=== PATIENT | female | born 1980 | race Caucasian/White ===

== ENCOUNTER 2021-04-02 21:17 | Emergency (ER) | payer MEDICAID, SELFPAY ==
[2021-04-02 21:18] VITALS: BP 161/101; PULSE 112; RESP 16; TEMP 36.5; O2SAT 99; BMI 24.7
[2021-04-02] MEDS: 0.9% Normal Saline 1,000 ML 1000 ML IV ×2 (22:22→23:24)
--- NOTE | 2021-04-02 22:25 | RAD_ITS ---
INDICATION: Bibasilar rales, Covid positive EXAMINATION/TECHNIQUE: X-RAY - XR Chest 1 View COMPARISON: None. FINDINGS: The lungs are clear. The cardiomediastinal silhouette is unremarkable. No pleural effusion or pneumothorax. No acute osseous abnormalities. RAD/Chest 1 View (Portable) IMPRESSION: No acute radiographic abnormalities. Electronically Signed: Lincoln Hernández MD at 23:08 EDT Tel , Service support ,
[2021-04-02 22:31] LABS: Absolute Neutrophil Count 2.5 X10^3/uL (2.0-7.7); Basophil# 0.01 X10^3/uL; Basophil% 0.2 % (0-1); Eosinophil# 0.07 X10^3/uL; Eosinophils% 1.5 % (0-5); Hematocrit 40.8 % (37-47); Hemoglobin 13.2 g/dL (12.0-15.0); Lymphocyte % 35.7 % (19-41); Mean Corp Hgb Conc 32.4 g/dL (32-36); Mean Corpuscular Hgb 29.7 pg (27.0-32.0); Mean Corpuscular Volume 91.9 fL (81-99); Mean Platelet Vol. 10.6 fl (6.2-12.0); Monocyte# 0.43 X10^3/uL; NRBC Flagged by Analyzer 0 % (0-5); Neutrophil # 2.54 X10^3/uL (2.7-7.7); Neutrophil % 53.4 % (47-70); Platelet Count 166 K/mm3 (150-450); RBC Distribution Width CV 13.3 % (11.6-14.6); RBC Distribution Width SD 45.6 fl (35.1-43.9); Red Blood Count 4.44 M/mm3 (4.2-5.4); White Blood Count 4.8 K/mm3 (4.4-11.0)
[2021-04-02 22:46] LABS: Anion Gap 3 (5-15); BUN 11 mg/dL (7-18); BUN/Creat Ratio 17.2 RATIO (10-20); Calcium,Total 8.5 mg/dL (8.5-10.1); Chloride 108 mmol/L (98-107); Creatinine, Serum 0.64 mg/dL (0.55-1.02); EST Glomerular Filtration Rate 108 mL/min (>60); Est Glom Filt Rate - Afr Amer 131 mL/min (>60); Estimated Creatinine Clearance 94.72 ml/min; Glucose 97 mg/dL (74-106); Potassium 3.8 mmol/L (3.5-5.1); Sodium Level 141 mmol/L (136-145)
--- NOTE | 2021-04-02 22:58 | EDS_ITS ---
HPI History of Present Illness Chief Complaint: General Illness Detail of Chief Complaint: COVID-19 positive and urinary symptoms Informant: patient Onset/Context/Timing Onset: Yesterday (Onset of urinary symptoms) and Weeks (Covid symptoms have been present for approximately 2 weeks.) Context: Sudden Onset Timing: Continuous Quality: Upper respiratory and Location: Upper respiratory and Current Severity: Moderate Maximum Severity: Moderate Worsened by: Dyspnea on exertion otherwise not applicable Relieved by: Nothing Associated Symptoms Associated Symptoms: Read HPI Narrative Narrative: Patient is a 41-year-old woman who is COVID-19 positive who presents with respiratory symptoms. What concerns her is increased fatigue and generalized weakness due to urinary tract infection. She complains of right flank pain and dysuria. She is sexually active. She is . She does not use any form of control. She denies vaginal bleeding or vaginal discharge. She denies subjective fever or chills. She does complain of mild headache. She denies photophobia or neck pain. She denies dyspnea or dyspnea on exertion. She reports nausea without vomiting or diarrhea. Prior similar symptoms: Yes Recent Illness/Hospitalization: Yes [facility] Medical History Asthmatic bronchitis Home Medications ciprofloxacin HCl 500 mg PO BID #14 tablet 04/03/21 [Rx Last Taken Unknown] Allergy/AdvReac Type Severity Reaction Status Date / Time No Known Allergies Allergy Verified 04/02/21 21:22 Social History (Updated 04/02/21 @ 23:[address] Juan Diego Moore MD) household members: spouse and family Smoking Status: Current every day smoker tobacco type: cigarettes alcohol intake: current alcohol intake frequency: other substance use type: does not use ROS ROS ED Constitutional Constitutional ED: Reports fever(s) and subjective; Denies chills or sweats Eyes Eyes: Denies blurry vision, change in vision or diplopia ENT ENT ED: Reports rhinorrhea and sore throat; Denies ear pain Cardiovascular Cardiovascular: Denies chest pain, orthopnea or palpitations Respiratory/Chest Respiratory/Chest: Reports cough; Denies dyspnea, dyspnea on exertion, orthopnea or sputum Gastrointestinal Gastrointestinal: Reports abdominal pain and nausea; Denies diarrhea or vomiting Genitourinary Genitourinary ED: Reports dysuria; Denies hematuria or urinary frequency Musculoskeletal Musculoskeletal: Denies arthralgias, myalgias or neck pain Integumentary Denies Abrasions or rash Neurologic Neurologic: Reports headache(s) and weakness; Denies paresthesias Endocrine Endocrinology: Denies polydipsia, polyphagia or polyuria EXAM Physical Exam Const Vital Signs: 04/02/21 21:18 04/02/21 22:21 04/02/21 23:18 Temperature 97.7 F L Temperature Source Temporal Pulse Rate 112 H 84 Respiratory Rate 16 18 Respiratory Effort Normal Non-Labored Blood Pressure 161/101 H 140/81 H Blood Pressure Mean 121 100 Pulse Ox 99 100 Oxygen Delivery Method Room Air Room Air Positive well nourished and well developed General Appearance ED: well developed and other Patient does not appear well. She does not appear toxic. HEENT HEENT Narrative: Head is atraumatic normocephalic. Ears are normal. Nares patent. Posterior pharynx unremarkable. Eyes PERRL and EOMs intact bilaterally General Eye ED: Negative for pale conjunctiva or scleral icterus Neck no lymphadenopathy, supple and no JVD Chest Wall inspection of chest normal and palpation of chest normal Resp normal respiratory effort and clear to auscultation bilaterally Effort and Inspection: Negative for pain with movement Cardio regular rhythm, S1 normal heart sound, S2 normal heart sound and no murmurs Rate: tachycardic GI normal to inspection, nondistended, normoactive bowel sounds, non-tender and non-distended Palpation: soft Back/Spine General Back: CVA tenderness right Cervical Spine: Negative for cervical spine tenderness Thoracic Spine / Upper Back: Negative for thoracic spinal tenderness or para spinal muscle tenderness Extremity normal to inspection General Extremety ED: Negative for edema or tenderness General Extremity: Negative for edema Neuro oriented x3, CN's II-XII intact bilaterally and no sensory deficits noted Sensorium / Orientation: alert Motor Exam: strength 5/5 throughout Psych mental status grossly normal Skin no rashes or lesions noted, no wounds and skin turgor normal MDM MDM MDM Narrative Medical decision making narrative: Constellation of symptoms may be due to Covid. With her having urinary symptoms will obtain UA to evaluate for urinary tract infection. Since she is tachycardic IV fluids were ordered. Lab Data Attestation: I reviewed the patient's lab results. Labs: Laboratory Results - last 24 hr 08/26/21 08/26/21 08/26/21 22:18 22:18 22:18 WBC 4.8 RBC 4.44 Hgb 13.2 Hct 40.8 MCV 91.9 MCH 29.7 MCHC 32.4 RDW Std Deviation 45.6 H RDW Coeff of Candy 13.3 Plt Count 166 MPV 10.6 Immature Gran % (Auto) 0.200 Neut % (Auto) 53.4 Lymph % (Auto) 35.7 [place] % (Auto) 9.0 Eos % (Auto) 1.5 Baso % (Auto) 0.2 Absolute Neuts (auto) 2.5 Absolute Lymphs (auto) 1.70 Nucleated RBC % 0 Sodium 141 Potassium 3.8 Chloride 108 H Carbon Dioxide 30.0 Anion Gap 3 L BUN 11 Creatinine 0.64 Estim Creat Clear Calc 94.72 Est GFR (MDRD) Af Amer 131 Est GFR (MDRD) Non-Af 108 BUN/Creatinine Ratio 17.2 Glucose 97 Lactic Acid 1.6 Calcium 8.5 Urine Color Urine Clarity Urine pH Ur Specific [place] Urine Protein Urine Glucose (UA) Urine Ketones Urine Occult Blood Urine Nitrite Urine Bilirubin Urine Urobilinogen Ur Leukocyte Esterase Urine RBC Urine WBC Ur Squamous Epith Cells Urine Bacteria Urine Mucus 04/02/21 23:19 WBC RBC Hgb Hct MCV MCH MCHC RDW Std Deviation RDW Coeff of Candy Plt Count MPV Immature Gran % (Auto) Neut % (Auto) Lymph % (Auto) [place] % (Auto) Eos % (Auto) Baso % (Auto) Absolute Neuts (auto) Absolute Lymphs (auto) Nucleated RBC % Sodium Potassium Chloride Carbon Dioxide Anion Gap BUN Creatinine Estim Creat Clear Calc Est GFR (MDRD) Af Amer Est GFR (MDRD) Non-Af BUN/Creatinine Ratio Glucose Lactic Acid Calcium Urine Color Yellow Urine Clarity Cloudy Urine pH 7.0 Ur Specific [place] 1.010 Urine Protein 30 H Urine Glucose (UA) Normal Urine Ketones Negative Urine Occult Blood 25 H Urine Nitrite Positive H Urine Bilirubin Negative Urine Urobilinogen Normal Ur Leukocyte Esterase 500 H Urine RBC 0-5 SEEN Urine WBC >100 SEEN Ur Squamous Epith Cells 0 SEEN Urine Bacteria 2+ Urine Mucus 0 SEEN Patient's urine is consistent with urinary tract infection. She was ordered 1 g of Rocephin. Culture was sent. She requested her prescription be filled here. Since she has CVA tenderness will treat for pyelonephritis. Radiography Chest X-Ray - ED: 1 View, Read by ED Physician, Unchanged, Heart, Lungs, Mediastinum, Bony Structures and Chronic Changes Diagnostic Testing: Radiology Impression Chest X-Ray 04/02/21 22:25 IMPRESSION: No acute radiographic abnormalities. Electronically Signed: Lincoln Hernández MD at 23:08 EDT Tel , Service support , Discharge Plan Triage Chief Complaint: General Illness ED Provider: Juan Diego Moore Dx/Rx/DC Orders Clinical Impression: Pyelonephritis of right kidney, COVID-19 virus infection Instructions: Coronavirus Disease 2019 (COVID-19): Caring for Yourself or Others, Kidney Infec Dc Prescriptions: New ciprofloxacin HCl [ciprofloxacin HCl] 500 MG tablet 500 mg PO BID Qty: 14 RF: 0 Primary Care Provider: Care Physician,No Primary Referrals: Paty Null MD [STAFF PHYSICIAN] - 3-5 Days Care Physician,No Primary [Primary Care Provider] - Disposition Disposition: Home, Self Care
[2021-04-02 23:13] LABS: Lactic Acid 1.6 mmol/L (0.4-1.9)
[2021-04-02 23:18] VITALS: BP 140/81; PULSE 84; RESP 18; O2SAT 100
[2021-04-02 23:32] LABS: Color, Urine Yellow (Yellow); Glucose, Dipstick Normal (Normal); Ketone-Dipstick Negative (Negative); Leukocyte Esterase-Dipstick 500 /ul (Negative); Mucous, Urine 0 SEEN /hpf (<or=2+); Nitrite-Dipstick Positive (Negative); Occult Blood-Urine 25 /ul (Negative); Protein-Dipstick 30 mg/dl (Negative); Squamous Epithelial Cells - UA 0 SEEN /hpf (5-10); Urine Bilirubin Dipstick Negative (Negative); Urine Clarity Cloudy (Clear); Urine Urobilinogen Normal (Normal)
[2021-04-02 23:54] LABS: Bacteria 2+ /hpf (None Seen); Red Blood Cells-Urine 0-5 SEEN /hpf (0-5); White Blood Cells >100 SEEN /hpf (0-5)
[2021-04-03 01:06] VITALS: BP 122/79; PULSE 75; RESP 16; O2SAT 100
[2021-04-03] MEDS: Ceftriaxone 1 GM/50 ML BAG IV (01:21)
== END 2021-04-03 02:07 | disposition home or self-care (01) ==
PROVIDERS: Emergency Provider Emergency Medicine
DX: N12 Tubulo-interstitial nephritis, not specified as acute or chronic (principal); U07.1 COVID-19; J45.909 Unspecified asthma, uncomplicated; F17.210 Nicotine dependence, cigarettes, uncomplicated
CPT/HCPCS: 71045; 80048; 81001; 83605; 85025; 87077; 87086; 87088; 87186; 96361; 96365; 99285; J7030; A4216

== ENCOUNTER 2021-09-15 23:59 | Emergency (ER) | payer MEDICAID, SELFPAY ==
[2021-09-16] VITALS: BP 164/111; PULSE 89; RESP 18; TEMP 36; O2SAT 100; BMI 24.7
--- NOTE | 2021-09-16 00:18 | RAD_ITS ---
STUDY: X-RAY - LEFT HUMERUS REASON FOR EXAM: Female, 41 years old. Fall TECHNIQUE: 2 view(s) of the humerus. COMPARISON: None. FINDINGS: Normal visualized humerus. There is no demonstrated fracture or osseous destructive process. There is no demonstrated soft tissue abnormality. RAD/Humerus min 2 Views IMPRESSION: Normal x-ray examination of the humerus. Electronically Signed: Chanel Lerma MD at 1:07 EST Reading Location ID and State: [facility] / [place] Tel , Service support ,
--- NOTE | 2021-09-16 00:18 | RAD_ITS ---
STUDY: X-RAY - LEFT RADIUS AND ULNA REASON FOR EXAM: Female, 41 years old. Fall Pain TECHNIQUE: 2 view(s) of the forearm. COMPARISON: None. FINDINGS: There is no demonstrated soft tissue swelling. Normal visualized radius. Normal visualized ulna. RAD/Forearm 2 Views IMPRESSION: Normal x-ray examination of the radius and ulna. Electronically Signed: Chanel Lerma MD at 1:06 EST ,
--- NOTE | 2021-09-16 00:20 | EDS_ITS ---
HPI History of Present Illness HPI Narrative: Patient presents with pain to her left arm, mainly elbow and wrist and forearm from an injury she sustained approximately 3 weeks ago. She states that she got out of the shower and slipped on the painted cement floor as she was reaching for a towel. She fell onto her left elbow and had pain in her forearm. She is right-hand dominant. She denies striking her head or loss of consciousness. She states she was taking Tylenol and Motrin without relief of her symptoms. It may have been improving, but 4 to 5 days ago she fell again when she was getting wood in the basement because it had snow on it. She fell onto her left wrist. She is complaining of pain in her humerus and in her forearm, mainly the elbow and wrist of her left arm. She denies other injuries. She presents for evaluation of her injuries to her left arm and forearm. Chief Complaint: Upper Extremity Injury [facility] Medical History Asthmatic bronchitis Home Medications ciprofloxacin HCl 500 mg PO BID #14 tablet 04/03/21 [Rx Last Taken Unknown] naproxen [Naprosyn] 500 mg PO BID PRN #20 tab 09/16/21 [Rx Last Taken Unknown] Allergy/AdvReac Type Severity Reaction Status Date / Time No Known Allergies Allergy Verified 04/02/21 21:22 Social History household members: spouse and family Smoking Status: Current every day smoker tobacco type: cigarettes alcohol intake: current alcohol intake frequency: other substance use type: does not use ROS ROS ED ROS Narrative Constitutional: No fever, no chills. HEENT: No sore throat. No neck pain. No loss of vision. No rhinorrhea. Cardiovascular: No chest pain. No palpitations. No pedal edema. Respiratory: No cough, no shortness of breath. Abdominal: No abdominal pain. No nausea. No vomiting. Genitourinary: No dysuria. No hematuria. Musculoskeletal: Left elbow, wrist, forearm, and shoulder pain, worse with movement. Neurologic: No headaches. No dizziness. No lightheadedness. Skin: No rash. No change in color. Psychiatric: No depression. No anxiety. EXAM Physical Exam Narrative Exam Narrative: Afebrile. Vital signs noted. HEENT: Normocephalic. Atraumatic. PERRL, EOMI. Neck soft and supple. No point tenderness or step off. Cardiovascular: Regular rate and rhythm. No murmurs, rubs, or gallops appreciated. Respiratory: No tachypnea. Lungs clear to auscultation bilaterally. Gastrointestinal: Abdomen soft, nontender, with normoactive bowel sounds. No rebound or guarding. Neurological: Awake. Alert. Nonfocal, nonlateralizing. Skin: No rash. Normal color. No pallor. Musculoskeletal: No pedal edema. Range of motion limited left elbow, shoulder, and wrist secondary to pain. Palpable radial pulse, left. Diffuse tenderness to palpation left wrist and left olecranon process of elbow. No clinical dislo cation of left shoulder. Const Vital Signs: 09/16/21 00:00 Temperature 96.8 F L Temperature Source Temporal Pulse Rate 89 Respiratory Rate 18 Blood Pressure 164/111 H Blood Pressure Mean 128 Pulse Ox 100 Oxygen Delivery Method Room Air MDM MDM MDM Narrative Medical decision making narrative: X-rays were obtained of the left humerus and of the left forearm to capture all the joints of the left arm from the shoulder down to the wrist. Her x-rays show no evidence of acute fracture. She will be placed in a Velcro splint and will continue ice and elevation at home. She was given 1 tramadol tablet here for analgesia. I do not feel narcotic medications are indicated. She requested a prescription for an NSAID. She was written a prescription for naproxen. She will follow up with her primary care provider. Return instructions were reviewed. She will continue ice and elevation at home. Disposition is discharged home in stable condition. Discharge Plan Triage Chief Complaint: Upper Extremity Injury ED Provider: Ralph Saez Dx/Rx/DC Orders Clinical Impression: Fall, Elbow contusion, Left wrist sprain Instructions: ED Contusion, Elbow, ED Wrist Sprain Prescriptions: New naproxen [Naprosyn] 500 mg tablet 500 mg PO BID PRN (Reason: pain) Qty: 20 RF: 0 No Action ciprofloxacin HCl [ciprofloxacin HCl] 500 MG tablet 500 mg PO BID Qty: 14 RF: 0 Primary Care Provider: Care Physician,No Primary Referrals: Care Physician,No Primary [Primary Care Provider] - Disposition Disposition: Home, Self Care
[2021-09-16] MEDS: traMADol 50 MG Tablet PO (01:06)
== END 2021-09-16 01:39 | disposition home or self-care (01) ==
PROVIDERS: Emergency Provider Emergency Medicine; Visit Provider Emergency Medicine
DX: S63.502A Unspecified sprain of left wrist, initial encounter (principal); S50.02XA Contusion of left elbow, initial encounter; W01.0XXA Fall on same level from slipping, tripping and stumbling without subsequent striking against object, initial encounter; Y93.E1 Activity, personal bathing and showering; Y92.9 Unspecified place or not applicable; F17.210 Nicotine dependence, cigarettes, uncomplicated
CPT/HCPCS: 73060; 73090; 99283